=== PATIENT | female | born 1940 | race American Indian/Alaskan Native ===

== ENCOUNTER 2017-07-14 12:01 | Outpatient (CLI) | payer MEDICARE ==
--- NOTE | 2017-07-14 17:11 | XRay Report ---
FINAL REPORT EXAM: XR CHEST ROUTINE 2V HISTORY: ACUTE AND SUBACUTE IRIDOYCYCLITIS TECHNIQUE: PA and lateral views of the chest PRIORS: None. FINDINGS: Lines, tubes, and devices: N/A Lungs and pleura: Trachea is normal in position. Lungs are clear of infiltrate, pleural effusion, vascular congestion, or pneumothorax. Cardiomediastinal silhouette: Cardiac and mediastinal silhouettes are unremarkable. Other: Bony structures are intact. Plate and screw device is present in the mid cervical spine. IMPRESSION: No acute cardiopulmonary process seen.
== END 2017-07-14 12:02 | disposition home or self-care (01) ==
LOC: XRAY 12:01
PROVIDERS: ATTEND Internal Medicine
DX: H20.00 Unspecified acute and subacute iridocyclitis (principal)
CPT/HCPCS: 71046

== ENCOUNTER 2017-08-12 11:46 | Outpatient (CLI) | payer MEDICARE ==
--- NOTE | 2017-08-12 12:55 | XRay Report ---
Bilateral knee 2 views: History: Knee pain. Findings: There is marked narrowing noted of the medial lateral and patellofemoral compartment right knee joint. Sclerotic articular surfaces with osteophyte suggestive of severe degenerative changes. There is left total knee noted. The tibial and femoral component appears anatomic in alignment. No significant abnormality of the soft tissues. Impression: Severe tricompartment degenerative changes right knee. Stable total left knee.
== END 2017-08-12 11:47 | disposition home or self-care (01) ==
LOC: XRAY 11:46
DX: M17.11 Unilateral primary osteoarthritis, right knee (principal)

== ENCOUNTER 2018-08-14 09:21 | Outpatient (CLI) | payer MEDICARE ==
--- NOTE | 2018-08-14 14:47 | Cat Scan Report ---
PROCEDURE: CT CHEST WO CON TECHNIQUE: HISTORY: Personal history of other diseases of the musculoskeletal system COMPARISONS: FINDINGS: FINDINGS: Pericardium: No evidence of pericardial effusion. Thoracic aorta: Calcifications are seen in the kelley of the thoracic aorta. No evidence of aneurysma l dilatation. Coronary arteries: Are unremarkable. Mediastinum and hilar regions: Non specific subcentimeter lymph nodes are visualized. No pathologica lly enlarged lymph nodes or masses are identified. Lung Ramires: There appears to be a nodular density in the right lower lobe anteriorly inferiorly late rally, image 90 series 2 axial images, coronal image 85 series 601 and sagittal image 145 series 602. This measures approximately 1.9 x 2.7 cm. There may be early central cavitation. No effusions are se en. There is a linear band of atelectasis or scarring in the lingula. The lungs otherwise are clear. Upper abdomen: Gallbladder is surgically absent. A small hiatal hernia appears to be present. No acu te abnormalities are seen in the upper abdomen. Other: No acute bone abnormalities are seen. IMPRESSION: Nodular density with possible early central cavitation right lower lobe as described.. Consider small neoplasm, infectious process, rheumatoid nodule or Morris's granulomatosis Prior cholecystectomy. Small hiatal hernia is present. This document is electronically signed by Toro Sotomayor MD., August 14 2018 02:42:56 PM ET
== END 2018-08-14 09:22 | disposition home or self-care (01) ==
LOC: CT 09:21
PROVIDERS: ATTEND Specialist
DX: K44.9 Diaphragmatic hernia without obstruction or gangrene (principal); I10 Essential (primary) hypertension; J45.909 Unspecified asthma, uncomplicated; M19.90 Unspecified osteoarthritis, unspecified site; Z90.49 Acquired absence of other specified parts of digestive tract
CPT/HCPCS: 36415; 71250; 82565; 84520

== ENCOUNTER 2019-08-26 13:27 | Emergency (ER) | payer MEDICARE ==
--- NOTE | 2019-08-26 14:00 | Emergency Department Report ---
ED CPR HPI - General Chief Complaint: Cardiac Arrest/CPR Stated Complaint: CARDIAC ARREST Time Seen by Provider: 08/26/19 13:51 Source: EMS Mode of arrival: Stretcher Limitations: Other - History of Present Illness Initial Comments: 79-year-old female with multiple medical comorbidities present cardiac arrest. Family states she was recently discharged from [facility] where COVID infection was confirmed. Family state that she was treated for congestive heart failure. Review of her prior records here are indicative of pulmonary embolism, acute kidney injury and diabetes. Medics report that the patient was found in asystole with unknown downtime. Family states that she has been intermittently short of breath. They state that they witnessed the patient's last breath prior to medic arrival. Medics utilized the [place] air had intraosseous access. There was no return of spontaneous circulation despite 3 rounds of epinephrine. CPR continued. The patient arrived in asystole on prehospital monitor but when placed on arm monitor did have complexes. There was no respiratory effort. MD Complaint: stopped breathing -: minute(s) (Greater than 35) Place: home Bystander CPR Performed: No Initial Findings in the Field: unresponsive, systole ROSC in the Field: No Associated Injuries: No Treatments Prior to Arrival: intubation, epinephrine mgs # - Related Data Home Medications Medication Instructions Recorded Confirmed Last Taken AtorvaSTATin [Lipitor] 40 mg PO QHS 08/02/19 08/02/19 Unknown Furosemide [Lasix TAB] 20 mg PO QDAY 08/02/19 08/02/19 Unknown Insulin Detemir [Levemir Flextouch] 10 unit SQ BID 08/02/19 08/02/19 08/01/19 Insulin Lispro 10 unit SQ TID 08/02/19 08/02/19 Unknown Prednisone [predniSONE (Brooke) ER 5 mg PO QDAY 08/02/19 08/02/19 Unknown TAB] allopurinoL [Zyloprim] 100 mg PO QHS 08/02/19 08/02/19 Unknown amLODIPine 5 mg PO DAILY 08/02/19 08/02/19 Unknown traZODone [Desyrel] 50 mg PO QHS 08/02/19 08/02/19 Unknown Previous Rx's Medication Instructions Recorded Last Taken Type Apixaban [Eliquis] 5 mg PO Q12HR #60 tablet 08/07/19 Unknown Rx Metoprolol [Lopressor TAB] 50 mg PO BID #60 tablet 08/07/19 Unknown Rx Allergies Allergy/AdvReac Type Severity Reaction Status Date / Time cyclobenzaprine Allergy Hives Verified 08/02/19 17:06 [From Flexeril] hydromorphone [From Dilaudid] Allergy PT BECOME Verified 08/02/19 17:06 UNRESPONSIVE nalbuphine [From Nubain] Allergy Hives Verified 08/02/19 17:06 ED Review of Systems ROS: Stated complaint: CARDIAC ARREST Other details as noted in HPI Comment: Unobtainable due to pts medical conditions ED Past Medical Hx - Past Medical History Hx Hypertension: Yes Hx CVA: Yes (04/2019) Hx Diabetes: Yes Hx Arthritis: Yes Hx Asthma: Yes Additional medical history: sarcoidosis - Surgical History Additional Surgical History: spine surgery in 2014, bilat knee replacement - Social History Smoking Status: Never Smoker - Medications Home Medications: Home Medications Medication Instructions Recorded Confirmed Last Taken Type AtorvaSTATin [Lipitor] 40 mg PO QHS 08/02/19 08/02/19 Unknown History Furosemide [Lasix TAB] 20 mg PO QDAY 08/02/19 08/02/19 Unknown History Insulin Detemir [Levemir Flextouch] 10 unit SQ BID 08/02/19 08/02/19 08/01/19 History Insulin Lispro 10 unit SQ TID 08/02/19 08/02/19 Unknown History Prednisone [predniSONE (Brooke) ER 5 mg PO QDAY 08/02/19 08/02/19 Unknown History TAB] allopurinoL [Zyloprim] 100 mg PO QHS 08/02/19 08/02/19 Unknown History amLODIPine 5 mg PO DAILY 08/02/19 08/02/19 Unknown History traZODone [Desyrel] 50 mg PO QHS 08/02/19 08/02/19 Unknown History Apixaban [Eliquis] 5 mg PO Q12HR #60 tablet 08/07/19 Unknown Rx Metoprolol [Lopressor TAB] 50 mg PO BID #60 tablet 08/07/19 Unknown Rx ED Physical Exam - General Limitations: Physical Limitation, Other - Head Head exam: Present: atraumatic - Eye Eye exam: Present: other (Nonreactive) - ENT ENT exam: Present: normal exam - Neck Neck exam: Present: normal inspection - Respiratory Respiratory exam: Present: other (Some ventilation noted with [place] air assist) - Cardiovascular Cardiovascular Exam: Present: other (No heart sounds) - GI/Abdominal GI/Abdominal exam: Present: distended - Extremities Exam Extremities exam: Present: other (I/O catheter) - Neurological Exam Neurological exam: Present: other (GCS 3) - Skin Skin exam: Present: warm ED Course - Reevaluation(s) Reevaluation #1: Patient was found to be in electromechanical dissociation. Doppler exam was negative. There were no signs of life. She was pronounced shortly after arrival. The family was counseled. 08/26/19 13:58 Critical care attestation.: If time is entered above; I have spent that time in minutes in the direct care of this critically ill patient, excluding procedure time. ED Disposition Clinical Impression: Cardiac arrest Disposition: DC-20 Is pt being admited?: No Does the pt Need Aspirin: No Condition: Stable Referrals: PRIMARY CARE, [Primary Care Provider] - 3-5 Days Time of Disposition: 13:58
== END 2019-08-26 14:00 ==
LOC: ED 13:27
DX: I46.9 Cardiac arrest, cause unspecified (principal); I10 Essential (primary) hypertension; E11.9 Type 2 diabetes mellitus without complications; J45.909 Unspecified asthma, uncomplicated; M19.90 Unspecified osteoarthritis, unspecified site; Z88.8 Allergy status to other drugs, medicaments and biological substances; Z86.69 Personal history of other diseases of the nervous system and sense organs; Z79.899 Other long term (current) drug therapy; Z98.890 Other specified postprocedural states
CPT/HCPCS: 92950